=== PATIENT | male | born 1980 | race Caucasian/White ===

== ENCOUNTER → 2020-10-25 11:11 | Outpatient (CLI) | payer OTHER, SELFPAY ==
[2020-10-25 12:04] LABS: Basophils # 0.1 K/mm3 (0-0.2); Basophils % 1.2 % (0.1-2.0); Eosinophils # 0.3 K/mm3 (0.0-0.4); Eosinophils % 7.8 % (0.1-12.0); Hematocrit 40.4 % (42.0-52.0); Lymphocytes # 1.4 K/mm3 (0.7-4.5); Lymphocytes % 31.2 % (10-50); Mean Corpuscular HGB Conc 34.6 g/dL (31.8-35.4); Mean Corpuscular Hemoglobin 28.9 pg (27.0-31.2); Mean Corpuscular Volume 83.3 fl (80-94); Mean Platelet Volume 7.5 fl (7.4-10.4); Monocytes # 0.3 K/mm3 (0.1-1.0); Monocytes % 5.8 % (1.7-9.3); Neutrophils # 2.3 K/mm3 (1.8-7.8); Platelet Count 298 K/mm3 (142-424); Red Blood Count 4.85 M/mm3 (4.60-6.20); Red Cell Distribution Width 13.2 % (11.5-17.5); White Blood Count 4.3 K/mm3 (4.8-10.8)
[2020-10-25 12:33] LABS: Anion Gap 14.5 mEq/L (5-15); Blood Urea Nitrogen 13 mg/dl (9-20); Calcium 8.9 mg/dl (8.4-10.2); Carbon Dioxide 26 mmol/L (22.0-30.0); Chloride 103 mmol/L (98-107); Estimated Glomerular Filt Rate 124 ml/min (>60); GFR (African American) 150 ML/MIN (>60); Glucose 98 mg/dl (74-100); Potassium 4.5 mmoL/L (3.5-5.1); Sodium 139 mmol/L (136-145)
== END ==
PROVIDERS: Visit Provider Surgery
DX: Z01.812 Encounter for preprocedural laboratory examination (principal); Z11.52 Encounter for screening for COVID-19; K40.90 Unilateral inguinal hernia, without obstruction or gangrene, not specified as recurrent
CPT/HCPCS: 36415; 80048; 85025; U0003

== ENCOUNTER 2020-10-28 06:58 | Day surgery (SDC) | payer OTHER, SELFPAY ==
[2020-10-20 14:13] VITALS: BMI 23.5
[2020-10-28] VITALS (15 sets, daily range): BP systolic 113–151; BP diastolic 71–89; PULSE 67–106; RESP 14–18; TEMP 36.2–42.7; O2SAT 95–100
--- NOTE | 2020-10-28 09:29 | P.PN_ITS ---
[facility] Anesthesia Checklist - Patient Identification Patient Identification: Arm Band - Structural Data Admitted From: Home Planned Operative Procedure/s: Lap. bilat inguinal hernia repair Consent for Planned Operative Procedure(s) Verified: Yes Verified Documents: Surgical Consent, History and Physical - NPO Status Verified Time NPO: 00:00 - Additional verifications Anesthesia Reactions: No Hx Blood Transfusions: No Blood Transfusion Reaction: No - Airway Assessment C-Spine Mobility Assessed: Yes TMJ Mobility Assessed: Yes Dentition: Good Dentition - Neurological Assessment Level of Consciousness: Awake, Alert - Anesthesia Plan Anesthesia Risk discussed: Yes Anesthesia Plan: Verified ASA Class: I Anesthesia Type: General [facility] History Medical History: Denies:: Cancer, Diabetes Mellitus Type 1, Diabetes Mellitus Type 2, Internal Pacemaker, MRSA, Seizures *Have you ever received a pneumonia vaccine?: No *Have you received a flu vaccine this season?: Yes Other Medical History: Denies: Blood Transfusion Reaction Anesthesia experience/problems:: None Other Surgeries: Yes: Colonoscopy. No: Pacemaker Amputation: No Fractures: No - *Social History Last grade of school completed: Some college Smoking Status: Never smoker Alcohol Intake: never Substance Use Type: marijuana *Occupational Status:: employed Housing: house *Travel in the last 8 weeks: None Family Hx:: No significant family history
--- NOTE | 2020-10-28 10:22 | HMH.OPNOTE ---
Date of procedure: 10/28/20 Pre-op Diagnosis:: Bilateral inguinal hernias Post-op Diagnosis:: Same Procedure performed:: Laparoscopic repair bilateral inguinal hernias (TEPP) with placement of large sized Bard 3D max mesh bilaterally Surgeon:: Miguel Vazquez MD WHALE TRAINER:: Seamus Sue Anesthesia: GETA Estimated blood loss (mL): 15 Clinical Note:: Patient is a 39-year-old male who lives in [place] referred by Dr. Aneesh Dey for bilateral inguinal hernias. Patient states that he has been trying to maintain healthier lifestyle with diet and some exercise and has had about a 30 pound weight loss as result over this year. He had noticed some discomfort in the right lower quadrant area with abnormal sensation. He then noticed some asymmetry with bulging in the right groin area. Less bulging in the left groin. He was diagnosed with bilateral inguinal hernias. He does have some occasional burning discomfort and irritation in the right side more so than the left. Of note, the patient does have a history of prostatitis and complicated kidney stones. He works from home for [employer]. Operative findings:: He had a large right direct hernia as well as a moderate right indirect hernia. On the left he had a moderately large indirect hernia Operative note:: Patient was taken to the operating room. He was given preoperative intravenous antibiotics. In the operating room he was placed in a supine position. General anesthesia was induced. Chapman catheter was placed. Abdomen was prepped and draped in the standard surgical fashion. Subumbilical skin incision was made and dissection was carried down to the anterior rectus fascia which was incised to the right of the linea alba. Rectus muscles were retracted laterally and preperitoneal space was entered. Dissecting balloon trocar was inserted into the preperitoneal space and insufflated. This was observed under laparoscopic visualization. Balloon was then replaced with the structural balloon trocar which was inflated and CO2 pneumo preperitoneum was achieved. When placing a couple of 5 mm trochars inferior the balloon integrity was compromised. Structural balloon trocar was then removed and replaced with another structural balloon trocar. CO2 pneumo preperitoneum was insufflated. Dissection was first turned to the right side. Landmarks were identified identifying John's ligament. Inferior epigastric vessel, cord structures, and iliac vessels were identified. There was a moderately large direct hernia noted. Contents were easily reduced. Dissection was carried out around the cord. There was somewhat of a patent internal ring with a hernia sac. Hernia sac was dissected free from the cord and reduced. Preperitoneal space was dissected out laterally to allow for mesh placement. At this time attention was turned to dissection on the left side. In a similar fashion all landmarks were identified and dissection was carried out identifying John's ligament, inferior epigastric vessels, cord structures, and iliac vessels. There was no evidence of any appreciable direct hernia. However he had a widely patent internal ring with hernia sac consistent with indirect hernia. Hernia sac was able to be reduced. Dissection was carried out laterally to allow for mesh placement. Once full dissection was carried out a large sized Bard 3D max mesh dedicated for the left side was inserted into the preperitoneal space and oriented intracorporeally to cover the iliopectineal orifice. Repair appeared adequate. Next attention was turned to mesh placement on the right. A large sized Bard 3D max mesh dedicated for the right side was inserted into the preperitoneal space and oriented intracorporeally to cover the iliopectineal orifice. Repair appeared adequate. There was good hemostasis. CO2 pneumo preperitoneum was evacuated as the mesh was observed in good position. Trochars were removed. Posterior fashion per
--- NOTE | 2020-10-28 11:28 | SUR.PHASEII ---
ZOFRAN 4MG AND DECADRON 4MG IV GIVEN PER Sandra PELAYO RN.
--- NOTE | 2020-10-28 12:22 | SUR.PHASEII ---
PHENERGAN 6.25MG IN 25CCNS GIVEN IVPB OVER 15 MIN
[2020-10-28 13:55] LABS: Microscopic,Cath URINE MICROSCOPIC (MICROSCOPIC)
--- NOTE | 2020-10-28 13:56 | SUR.PHASEII ---
TC TO ESTHELA IN OFFICE TO INFORM TO CANCEL SCRIPT INTO Dajie AND CALL INTO CLINIC PHARMACY. VERBALIZED WOULD TRY AND WOULD NOTIFY MOTHER BOO.
--- NOTE | 2020-10-28 14:00 | HMH.ANESI ---
[facility] Anesthesia Record Part I Intake, IV Amount: 1,700 Estimated blood loss (mL): 2 Urine output (mL): 0 Blood Pressure: 151/84 SaO2: 95 Pulse Rate: 106 Respiratory Rate: 14 Temperature: 98.4 F Patient is:: Awake, Drowsy Stable to PACU at:: 10:40
[2020-10-28 14:02] LABS: Appearance,Urine/Cath CLEAR (Clear); Bilirubin,Cath Negative (Negative); Blood, Urine/Cath Negative (Negative); Color,Urine/Cath YELLOW (Yellow); Glucose,Urine/Cath (UA) Negative (Negative); Ketones,Urine/Cath Negative (Negative); Leukocyte Esterase,Cath Negative (Negative); Nitrate,Cath Negative (Negative); Protein,Urine/Cath Negative (Negative); Urobilinogen,Cath 0.2 EU/dl (0.2)
[2020-10-28 14:07] LABS: RBC,Urine/Cath Occasional # /hpf (0-3); Squamous Epithelial Ur./Cath Occasional #/hpf (0-5)
[2020-10-29 11:03] VITALS: BP 117/71; PULSE 87; TEMP 37
--- NOTE | 2020-10-29 11:03 | P.PN_ITS ---
[facility] Anesthesia Record Part II Discharge Time: 11:00 Destination: Surgical Day Care (OP Surgery) PACU nurse assessment reviewed?: Yes Patient Condition:: Good Anesthesia Complications:: None Swallowing reflex intact?: Yes Cyanosis?: No Blood Pressure: 117/71 Pulse Rate: 87 Temperature: 98.6 F Mental Status: Alert & Oriented Pain level:: 0 Nausea and/or vomitting:: None Intake, IV Amount: 0
== END 2020-10-28 13:06 | disposition home or self-care (01) ==
PROVIDERS: PCP Internal Medicine; Visit Provider Surgery
PROC: 0YQ64ZZ Repair Left Inguinal Region, Percutaneous Endoscopic Approach (ICD-10-PCS; CPT 49650; principal; 2020-10-28 08:30)
DX: K40.20 Bilateral inguinal hernia, without obstruction or gangrene, not specified as recurrent (principal); Z79.899 Other long term (current) drug therapy
CPT/HCPCS: 49650; 81001; 96374; C1781; J0131; J0330; J2405

== ENCOUNTER → 2021-02-23 18:29 | Outpatient (CLI) | payer OTHER, SELFPAY ==
[2021-02-23 19:59] LABS: Alanine Aminotransferase 14 U/L (12-78); Albumin Level 4.6 g/dl (3.5-5.0); Alkaline Phosphatase 53 U/L (38-126); Anion Gap 13.4 mEq/L (5-15); Aspartate Amino Transferase 22 U/L (17-59); Bilirubin,Total 0.6 mg/dl (0.2-1.3); Blood Urea Nitrogen 7 mg/dl (9-20); Carbon Dioxide 30 mmol/L (22.0-30.0); Chloride 101 mmol/L (98-107); Chol/HDL Ratio 5.7 (1-3.5); Cholesterol 211 mg/dl (140-200); Estimated Glomerular Filt Rate 148 ml/min (>60); GFR (African American) 179 ML/MIN (>60); Globulin 2.3 g/dL (1.3-3.2); Glucose 76 mg/dl (74-100); HDL Cholesterol 37 mg/dl (40-60); Potassium 4.4 mmoL/L (3.5-5.1); Sodium 140 mmol/L (136-145); Total Protein,Serum 6.9 g/dl (6.3-8.2); Triglycerides 295 mg/dl (30-150); VLDL Cholesterol 59 mg/dL (0-40)
[2021-02-23 20:10] LABS: Direct LDL Cholesterol 105.77 mg/dL (100-129)
== END ==
PROVIDERS: Visit Provider Internal Medicine
DX: E78.5 Hyperlipidemia, unspecified (principal); K58.1 Irritable bowel syndrome with constipation; R19.4 Change in bowel habit; Z87.442 Personal history of urinary calculi
CPT/HCPCS: 80053; 80061

== ENCOUNTER 2023-03-03 08:55 | Day surgery (SDC) | payer BC, SELFPAY ==
[2023-02-28 13:09] VITALS: BMI 24.3
[2023-03-03] VITALS (7 sets, daily range): BP systolic 85–119; BP diastolic 54–76; PULSE 70–75; RESP 14–18; TEMP 36.4–36.6; O2SAT 94–99
--- NOTE | 2023-03-03 09:50 | EXP.ANES.CKL ---
[facility] Disclaimer: The information contained in this section may have been updated after the patient was seen, as this information can be updated by other users. Medical History Allergies Migraine Surgical History History of ear surgery Hx of hernia repair Family History Other No significant family history Social History Smoking Status: Never smoker second hand exposure: No alcohol intake: never substance use type: marijuana current occupational status: employed Travel in the last 8 weeks: None housing: house current occupation: IT security current occupational exposures/hazards: No caffeine: Yes [facility] Anesthesia Checklist Patient Identification Patient Identification: Arm Band Structural Data Admitted From: Home Planned Operative Procedure/s: Colonoscopy Consent for Planned Operative Procedure(s) Verified: Yes Verified Documents: Surgical Consent and History and Physical NPO Status Verified Time NPO: 00:00 Additional verifications Anesthesia Reactions: No Hx Blood Transfusions: No Blood Transfusion Reaction: No Airway Assessment Mallampati Score:: Class II C-Spine Mobility Assessed: Yes TMJ Mobility Assessed: Yes Dentition: Good Dentition Neurological Assessment Level of Consciousness: Awake and Alert Anesthesia Plan Anesthesia Risk discussed: Yes Anesthesia Plan: Verified ASA Class: II Anesthesia Type: MAC
--- NOTE | 2023-03-03 10:09 | HMH.SCOPE ---
Procedure: Date: 03/03/23 Patient Date of :: 1980 Procedure Performed:: Screening colonoscopy Indications:: Age for colorectal cancer screening Performing Provider:: Wm Balderas MD Referring Provider:: Aneesh Dey MD Sedation:: Propofol Procedure:: After placing the patient in the left lateral decubitus position, the colonoscopy was gently inserted into the rectum and under direct visualization advanced to the cecum which was identified by transillumination in the right lower quadrant, identification of the ileocecal valve, appendiceal orifice, and cecal strap. Color, texture, mucosa, and anatomy of the colon were carefully examined with the scope. Findings:: Anal canal: normal Rectum: normal Sigmoid colon: normal without polyps or inflammatory changes Descending colon: normal without polyps or inflammatory changes Splenic flexure: normal Transverse colon: normal without polyps or inflammatory changes Hepatic flexure: normal Ascending colon: normal without polyps or inflammatory changes Cecum: normal Terminal ileum: not visualized Impression: Normal colonoscopy Recommendations:: Follow up examination in about TEN years or so, sooner if clinically indicated. Complications:: None Estimated blood obtained (mL): 0 Colonoscopy Component Colonoscopy Component Was a colonoscopy performed during today's procedure?: Yes Recommended follow up colonoscopy of at least 10 years?: Yes
== END 2023-03-03 10:50 | disposition home or self-care (01) ==
PROVIDERS: PCP Internal Medicine; Visit Provider Internal Medicine Gastroenterology
PROC: (CPT 45378; principal; 2023-03-03 10:00)
DX: Z12.11 Encounter for screening for malignant neoplasm of colon (principal)
CPT/HCPCS: 45378

== ENCOUNTER 2023-08-03 13:41 | Outpatient (CLI) | payer BC, SELFPAY ==
--- NOTE | 2023-08-03 13:46 | XR_ITS ---
FINAL REPORT CLINICAL HISTORY: Rt Shoulder Pain COMPARISON: None FINDINGS: RIGHT SHOULDER: 3 views of the right shoulder were obtained. There is no acute fracture or dislocation. There is mild elevation of the distal clavicle worrisome for mild AC separation. There is no soft tissue abnormality. IMPRESSION: Findings worrisome for mild AC separation. Reviewed, Interpreted and Dictated by Miguel Mendoza III, MD Transcribed by Alessandra Romero Authenticated and [facility]
== END 2023-08-03 23:59 ==
LOC: RAD 13:41
PROVIDERS: PCP Internal Medicine; Visit Provider Physician Assistant Surgical
DX: M25.511 Pain in right shoulder (principal)
CPT/HCPCS: 73030

== ENCOUNTER 2024-07-23 11:47 | Outpatient (CLI) | payer BC, SELFPAY ==
[2024-07-23 12:36] LABS: Alanine Aminotransferase 20 U/L (12-78); Albumin Level 4.8 g/dl (3.5-5.0); Albumin/Globulin Ratio 2.3 (1.1-1.8); Alkaline Phosphatase 42 U/L (38-126); Anion Gap 4.5 mEq/L (5-15); Aspartate Amino Transferase 22 U/L (17-59); Bilirubin,Total 0.6 mg/dl (0.2-1.3); Blood Urea Nitrogen 8 mg/dl (9-20); Calcium 9.9 mg/dl (8.4-10.2); Carbon Dioxide 34 mmol/L (22.0-30.0); Chloride 106 mmol/L (98-107); Estimated Glomerular Filt Rate 122 ml/min (>60); GFR (African American) 148 ML/MIN (>60); Globulin 2.1 g/dL (1.3-3.2); Glucose 105 mg/dl (74-100); Potassium 4.5 mmoL/L (3.5-5.1); Sodium 140 mmol/L (136-145); Total Protein,Serum 6.9 g/dl (6.3-8.2)
[2024-07-23 12:50] LABS: Free T4 (Free Thyroxine) 1.06 ng/dl (0.78-2.19)
[2024-07-23 13:04] LABS: Thyroid Stimulating Hormone 4.88 uIU/mL (0.465-4.68)
[2024-07-24 12:11] LABS: Lithium (Eskalith(R)) 0.6 mmol/L (0.5-1.2)
== END 2024-07-23 23:59 | disposition home or self-care (01) ==
LOC: LAB 11:47
PROVIDERS: PCP Internal Medicine; Visit Provider Nurse Practitioner Acute Care
DX: F39 Unspecified mood [affective] disorder (principal); F41.9 Anxiety disorder, unspecified; E03.9 Hypothyroidism, unspecified; G44.009 Cluster headache syndrome, unspecified, not intractable; Z79.899 Other long term (current) drug therapy
CPT/HCPCS: 36415; 80053; 80178; 84439; 84443

== ENCOUNTER 2024-10-18 10:20 | Outpatient (CLI) | payer BC, SELFPAY ==
--- NOTE | 2024-10-18 | CA_ITS ---
APPROVED REPORT Exam: Exercise Treadmill Technologist: [place] Ht: 6 ft 1 in Wt: 204 lbs BSA: 2.17 m2 HR: 62 bpm BP: 137/79 mmHg Rhythm: NSR Stress Test Details Test: Exercise stress testing was performed using a Veto protocol. HR Resting HR: 62 bpm Max Heart Rate (APMHR): 175 bpm Max HR Achieved: 157 bpm Target HR (85% APMHR): 149 bpm % of APMHR: 90 Recovery HR: 98 bpm HR response to stress: Normal HR response to stress BP Resting BP: 137.0/79.0 mmHg Max BP: 160.0/78.0 mmHg Recovery BP: 142.0/80.0 mmHg BP response to stress: Normal blood pressure response to stress. ECG Resting ECG: NSR Stress EC mm horizontal ST depression Arrhythmia: PVCs Clinical Exercise duration: 8.15 min Exercise capacity: 10.3 METs Stress ECG Conclusion Patient had leg fatigue Ectopy: PVCs ST changes: [address] depression CONCLUSION Average exercise capacity. Equivocal ECG changes at peak stress Myoview images reported separately Electronically signed by : Niharika Khnana MD 10/19/2024 15:43:37
--- NOTE | 2024-10-18 10:30 | CA_ITS ---
APPROVED REPORT EXAM: Comprehensive 2D, Doppler, and color-flow Echocardiogram Dough Braker: SMITHA Gabriel, RVS Ht: 6 ft 1 in Wt: 204lbs BSA: 2.17 BP: 114/76 mmHg Indications: CP 2D Dimensions Aortic Root 3.16 cm LA Volume 75.60 mL Left Atrium 3.14 cm LA Volume Index [id number] mL/m2 (M/F) 16-34 RVID Base (AP4) 3.79 cm (M/F) 2.5-4.1 EF AP4 61.20 % LVOT 2.11 cm (M/F) 1.5-2.5 GL Strain -23.1 % M-Mode Dimensions RVDd 2.92 cm (0.9-2.6) LVDd 4.63 cm (3.5-5.7) Ao Diam 3.28 cm (2.0-3.7) LVDs 2.76 cm (3.5-5.7) IVSd 1.25 cm (0.6-1.1) PWd 1.06 cm (0.6-1.1) EF (Teich) 74.70% EPSs 0.61 cm FS 43.70% EDV (Teich) 112.80 mL TAPSE 2.83 (<1.7) ESV (Teich) 28.50 mL LV Diastology E Decel Time 156 (160-240 msec) E/A Ratio 1.71 MED E' 10.2 (>= 7 cm/sec) MED A' 12.70 cm/s E'/MED E' Ratio 7.95 (<= 14) LAT E' 19.5 (>= 10 cm/sec) LAT A' 8.80 cm/s E/LAT E' Ratio 4.16 (<= 14) Aortic Valve LVOT Max 91.0 (70-110 cm/s) MEAGAN Index 1.22 cm2/m2 LVOT VTI 20.35 cm AoV Peak Vijay. 129.0 (50-130 cm/s) AO Mean GR. 3.40 (<5 mmHg) AO VTI 26.9 (18-25 cm) MEAGAN (VTI) 2.64 (2.5-4.5 cm2) Mitral Valve MV E Max Vijay. 81.0 (40-130 cm/s) MV A Velocity 47.0 (40-130 cm/s) E/A Ratio 1.71 MV Decel. Time 156 (160-240 ms) Tricuspid Valve TR P. Velocity 217.00 cm/s RAP Estimate 10.00 mmHg RVSP 28.90 mmHg Left Ventricle The left ventricle is normal size. The left ventricular systolic function is normal. The left ventricular ejection fraction is within the normal range. There is normal left ventricular wall thickness. There is normal LV segmental wall motion. The left ventricular diastolic function is normal. LVEF is 55%. Right Ventricle The right ventricle is normal size The right ventricular systolic function is normal. Atria The left atrium size is normal. The right atrium size is normal. There is no Doppler evidence of interatrial shunt. The aortic valve opens well. Aortic Valve The aortic valve opens well. There is no aortic valvular stenosis. No aortic regurgitation is present. Mitral Valve The mitral valve is normal in structure. No evidence of mitral valve stenosis. Mild mitral regurgitation. Tricuspid Valve Tricuspid valve is grossly normal in structure and function. Trace tricuspid regurgitation. There is insufficient TR jet to estimate RVSP. Pulmonic Valve The pulmonary valve is normal in structure. Trace pulmonic regurgitation. Great Vessels The aortic root is normal in size. IVC is normal in size and collapses >50% with inspiration. Pericardium There is no pericardial effusion. Other Information Study Quality: Fair Conclusion Normal biventricular systolic function. Mild MR. Electronically signed by : Niharika Khanna MD 10/22/2024 12:59:28
--- OUTSIDE RECORDS SUMMARY | 2024-10-18 10:31 | XMS_ITS | Data Portability ---
Author Organization [facility] ADALID Mccollum [place] [facility] Address [address] [facility] [address] [place] [address] Care Team Providers Care Manager Finance Name Role Phone CINDY HOSKINS Primary Care Provider ZELALEM ROWLAND Neurologist [phone] Assessment Encounter Date Assessment Date Assessment LastModified by Organization Details LastModified Time 06/20/2023 06/20/2023 Chronic cluster headache. In general he feels lithium has been helpful though headaches are not gone. Will try increasing to QID for now. Will put in for level and labs in another couple of weeks. f/u three mos [email or web address] Not available 06/26/2023 14:18:04 09/19/2023 09/19/2023 1. Chronic cluster headache 2. Additional migraines. While headaches are not gone, he is generally doing much better with lithium. Will continue. Discussed staying hydrated, kane when working outside this summer. Will repeat level and check creatinine, TSH. f/u late summer but he knows to call anytime if needed. [email or web address] Not available 09/19/2023 13:12:35 01/18/2024 01/18/2024 Chronic headache disorder. He has chronic cluster headaches and additional migraines. He had increased headaches thru November after having COVID Generally he has been better the past week or two. He feels he is doing much better overall, since starting lithium for prevention. Will continue same meds. Will check labs today f/u few mos [email or web address] Not available 01/18/2024 19:11:36 05/17/2024 05/17/2024 Chronic cluster headache. There have been headaches the past few nites but until the recent past he was doing well. For now, will make no change, but if these linger or if frequency seems consistently worse he knows to call. f/u few mos Not available 05/17/2024 12:44:46 09/14/2024 09/14/2024 Chronic cluster headache. Discussed options. He has been doing better the past couple of weeks - perhaps because of propranolol. I am not sure how much lithium is really helping. Will try stopping this and continuing propranolol. Dose could be increased to 60 mg LA or more, if needed f/u in just six weeks [email or web address] Not available 09/16/2024 14:23:26 Plan of Treatment Reminders Order Date Submit Date Provider Last Modified By Organization Details Last Modified Time Details Appointments NEUROLOG Y RECHECK 2024 10:30A M ZELALEM ROWLAND MD Not available Not available Not available Lab lithium, quant, serum or plasma 2024 025 [facility], [address] [place] [address], [id number], 05/18/2024 07:36:14 TSH, serum, reflex free T4 2024 025 [facility], [address] [place] [address], [id number], 05/17/2024 11:54:22 BMP, serum or plasma 2024 025 [facility], [address] [place] [address], [id number], 05/17/2024 11:58:17 lithium, quant, serum or plasma 2023 024 [facility], [address] [place] [address], [id number], 01/19/2024 06:56:04 TSH, serum, reflex free T4 2023 024 [facility], [address] [place] [address], [address], 01/18/2024 18:45:13 BMP, serum or plasma 2023 024 [facility], [address] [place] [address], [id number], 01/18/2024 18:30:59 TSH, serum, reflex free T4 2023 024 [facility], [address] [place] [address], [address], 09/23/2023 18:42:11 BMP, serum or plasma 2023 024 [facility], [address] [place] [address], [id number], 09/23/2023 19:00:15 T3, free, serum or plasma 2023 024 [facility], [address] [place] [address], [address], 09/23/2023 18:42:10 lithium, quant, serum or plasma 2023 024 [facility], [address] [place] [address], [id number], 09/24/2023 06:59:21 CMP, serum or plasma 2023 024 [email or web address] [facility], [address] [place] [address], [address], 06/27/2023 08:16:16 TSH, serum, reflex free T4 2023 024 [facility], [address] [place] [address], [id number], 06/30/2023 20:15:31 lithium, quant, serum or plasma 2023 024 [facility], [address] [place] [address], [address], 07/01/2023 06:18:47 Referral None recorded . Procedures None recorded . Surgeries None recorded . Imaging None recorded . Medication Orders sumatrip melendez 6 mg/0.5 mL subcutan eous pen injector 2024 025 AUNEL [facility] [id number], [address] [place], [address], 05/17/2024 10:38:25 rizatrip melendez 10 mg disinteg rating tablet [address] [facility] [id number], [address] [place], [address], 01/19/2024 10:08:57 lithium carbonat e 300 mg capsule [address] [id number], [address] [place], [address], 09/19/2023 12:13:58 Patient TargetsNo targets recorded. Patient InstructionsNo instructions recorded. Reason for Referral None Reported. Results Created Date Observation Date Name Description Value Unit Range Abnormal Flag Note LastModifiedBy Organization Detail LastModifiedTime 05/25/1905/25/2023 urina lysis panel , auto Unknown Analyte Clean Catch Not Available [facility] [address], [place], [address], 05/25/2023 11:40:20 05/25/19 24 05/25/2023 urina lysis panel , auto Unknown Analyte Yellow Not Available [facility] [place] [address], [place], [address], 05/25/2023 11:40:20 05/25/1905/25/2023 urina lysis panel , auto Unknown Analyte Clear Not Available [facility] With [address], [place], [address], 05/25/2023 11:40:20 05/25/19 24 05/25/2023 urina lysis panel , auto Unknown Analyte 1.010 Not Available [facility] [address] [facility], [place], [address], 05/25/2023 11:40:20 05/25/19 24 05/25/2023 urina lysis panel , auto Unknown Analyte 1.003- 1.035 Not Available [facility] [place] [address], [place], [address], 05/25/2023 11:40:20 05/25/19 24 05/25/2023 urina lysis panel , auto Unknown Analyte 8.0 Not Available [facility] [place] [address] [facility], [place], [address], 05/25/2023 11:40:20 05/25/19 24 05/25/2023 urina lysis panel , auto Unknown Analyte 5.0-8. 0 Not Available [facility] [place] [address] [facility], [place], [address], 05/25/2023 11:40:20 05/25/19 24 05/25/2023 urina lysis panel , auto Unknown Analyte Negati ve Not Available [facility] [place] [address] [facility], [place], [address], 05/25/2023 11:40:20 05/25/19 24 05/25/2023 urina lysis panel , auto Unknown Analyte Negati ve Not Available [facility] [place] [address] [facility], [place], [address], 05/25/2023 11:40:20 05/25/19 24 05/25/2023 urina lysis panel , auto Unknown Analyte Negati ve Not Available [facility] With [address], [place], [address], 05/25/2023 11:40:20 05/25/19 24 05/25/2023 urina lysis panel , auto Unknown Analyte Negati ve Not Available [facility] [address], [place], [address], 05/25/2023 11:40:20 05/25/19 24 05/25/2023 urina lysis panel , auto Unknown Analyte Negati ve Not Available [facility] [address], [place], [address], 05/25/2023 11:40:20 05/25/19 24 05/25/2023 urina lysis panel , auto Unknown Analyte Negati ve Not Available [facility] [address], [place], [address], 05/25/2023 11:40:20 05/25/19 24 05/25/2023 urina lysis panel , auto Unknown Analyte Normal Not Available [facility] [place] [address], [place], [address], 05/25/2023 11:40:20 05/25/19 24 05/25/2023 urina lysis panel , auto Unknown Analyte Normal Not Available [facility] [address], [place], [address], 05/25/2023 11:40:20 05/25/19 24 05/25/2023 urina lysis panel , auto Unknown Analyte Negati ve Not Available [facility] [address], [place], [address], 05/25/2023 11:40:20 05/25/1925 0505/25/2023 urina lysis panel , auto Unknown Analyte Negati ve Not Available [facility] [address], [place], [address], 05/25/2023 11:40:20 05/25/19 24 05/25/2023 urina lysis panel , auto Unknown Analyte Normal Not Available [facility] [place] [address], [place], [address], 05/25/2023 11:40:20 05/25/19 24 05/25/2023 urina lysis panel , auto Unknown Analyte Normal 1 mg/dl Not Available [facility] [place] [address], [place], [address], 05/25/2023 11:40:20 05/25/19 24 05/25/2023 urina lysis panel , auto Unknown Analyte Negati ve Not Available [facility] With [address], [place], [address], 05/25/2023 11:40:20 05/25/19 24 05/25/2023 urina lysis panel , auto Unknown Analyte Negati ve Not Available [facility] [place] [address], [place], [address], 05/25/2023 11:40:20 05/25/19 24 05/25/2023 urina lysis panel , auto Unknown Analyte Negati ve Not Available [facility] [place] [address], [place], [address], 05/25/2023 11:40:20 05/25/19 24 05/25/2023 urina lysis panel , auto Unknown Analyte Negati ve Not Available [facility] [place] [address], [place], [address], 05/25/2023 11:40:20 06/08/19 24 06/08/2023 TSH WITH REFLE X FT4 TSH with reflex FT4 5.590 u[IU] /mL 0.270- 4.200 high Not Available [facility] [address] [place] [address], [address], 06/08/2023 18:50:24 06/08/19 24 06/08/2023 AST AST 24 U/L 0-40 normal Not Available [facility] [address] [place] [address], [address], 06/08/2023 19:12:28 06/08/19 24 06/08/2023 CREAT ININE creatinine 0.77 mg/dL 0.70-1 .28 normal Not Available [facility] [address] [place] [address], [address], 06/08/2023 19:12:29 06/08/19 24 06/08/2023 T4,FR EE T4,free 1.28 NG/dL 0.93-1 .70 normal Not Available [facility] [address] [place] [address], [address], 06/08/2023 19:25:24 06/08/19 24 06/09/2023 LITHI UM lithium 0.5 mmol/ L 0.6-1. 2 low Not Available [facility] [address] [place] [address], [address], 06/09/2023 05:48:40 06/30/19 24 06/30/2023 TSH WITH REFLE X FT4 TSH with reflex FT4 6.350 u[IU] /mL 0.270- 4.200 high Not Available [facility] [address] [place] [address], [address], 06/30/2023 20:15:31 06/30/19 24 06/30/2023 COMP. METAB OLIC PANEL glucose 97 mg/dL 74-100 normal Not Available [facility] [address] [place] [address], [address], 06/30/2023 20:40:08 06/30/19 24 06/30/2023 COMP. METAB OLIC PANEL blood urea nitrogen 11 mg/dL 6-20 normal Not Available [facility] [address] [place] [address], [address], 06/30/2023 20:40:08 06/30/19 24 06/30/2023 COMP. METAB OLIC PANEL creatinine 0.85 mg/dL 0.70-1 .28 normal Not Available [facility] [address] [place] [address], [address], 06/30/2023 20:40:08 06/30/19 24 06/30/2023 COMP. METAB OLIC PANEL BUN/creatini ne ratio 13 (calc ) 10-20 normal Not Available [facility] [address] [place] [address], [address], 06/30/2023 20:40:08 06/30/19 24 06/30/2023 COMP. METAB OLIC PANEL sodium 141 mmol/ L 136-14 5 normal Not Available [facility] [address] [place] [address], [address], 06/30/2023 20:40:08 06/30/19 24 06/30/2023 COMP. METAB OLIC PANEL potassium 3.8 mmol/ L 3.4-5. 0 normal Not Available [facility] [address] [place] [address], [address], 06/30/2023 20:40:08 06/30/19 24 06/30/2023 COMP. METAB OLIC PANEL chloride 103 mmol/ L 98-107 normal Not Available [facility] [address] [place] [address], [address], 06/30/2023 20:40:08 06/30/19 24 06/30/2023 COMP. METAB OLIC PANEL carbon dioxide 25 mmol/ L 22-31 normal Not Available [facility] [address] [place] [address], [address], 06/30/2023 20:40:08 06/30/19 24 06/30/2023 COMP. METAB OLIC PANEL anion gap 13 (calc ) 7-25 normal Not Available [facility] [address] [place] [address], [address], 06/30/2023 20:40:08 06/30/19 24 06/30/2023 COMP. METAB OLIC PANEL calcium 9.4 mg/dL 8.6-10 .2 normal Not Available [facility] [address] [place] [address], [address], 06/30/2023 20:40:08 06/30/19 24 06/30/2023 COMP. METAB OLIC PANEL total protein 6.8 g/dL 6.4-8. 3 normal Not Available [facility] [address] [place] [address], [address], 06/30/2023 20:40:08 06/30/19 24 06/30/2023 COMP. METAB OLIC PANEL albumin 4.5 g/dL 3.5-5. 2 normal Not Available [facility] [address] [place] [address], [address], 06/30/2023 20:40:08 06/30/19 24 06/30/2023 COMP. METAB OLIC PANEL globulin 2.3 1.5-4. 5 normal Not Available [facility] [address] [place] [address], [address], 06/30/2023 20:40:08 06/30/19 24 06/30/2023 COMP. METAB OLIC PANEL albumin/glob ulin ratio 2.0 (calc ) 1.1-2. 5 normal Not Available [facility] [address] [place] [address], [address], 06/30/2023 20:40:08 06/30/19 24 06/30/2023 COMP. METAB OLIC PANEL bilirubin, total 0.7 mg/dL 0.1-1. 2 normal Not Available [facility] [address] [place] [address], [address], 06/30/2023 20:40:08 06/30/19 24 06/30/2023 COMP. METAB OLIC PANEL alkaline phosphatase 42 U/L 40-129 normal Not Available [facility] [address] [place], [address], 06/30/2023 20:40:08 06/30/19 24 06/30/2023 COMP. METAB OLIC PANEL AST 17 U/L 0-40 normal Not Available [facility] [address] [place] [address], [address], 06/30/2023 20:40:08 06/30/19 24 06/30/2023 COMP. METAB OLIC PANEL ALT 26 U/L 0-41 normal Not Available [facility] [address] [place] [address], [address], 06/30/2023 20:40:08 06/30/19 24 06/30/2023 COMP. METAB OLIC PANEL GFR 109 >= 60 normal NOT E New calcu latio n for GFR (CKD- EPI 2020) is formu lated witho ut race adjus tment facto rs at the [facility] menda tion of the Oskar Grijalva y Nikolay atkaleb and [place] galdamez Socie ty of Nephr ology . This calcu latio n has not been valid ated in pregn ant women . For pedia tric patie nts refer to https ://hugo stanford.joseph maravilla/keith taylor s/VERNAO QI/gf r_cal culat orPed Not Available [facility] [address] [place] [address], [address], 06/30/2023 20:40:08 06/30/19 24 06/30/2023 T4,FR EE T4,free 1.23 NG/dL 0.93-1 .70 normal Not Available [facility] [address] [place] [address], [address], 06/30/2023 20:59:27 06/30/19 24 07/01/2023 LITHI UM lithium 0.7 mmol/ L 0.6-1. 2 normal Not Available [facility] [address] [place] [address], [address], 07/01/2023 06:18:47 09/23/19 24 09/23/2023 T3 FREE T3 free 3.27 pg/mL 2.00-4 .40 normal Not Available [facility] [address] [place] [address], [address], 09/23/2023 18:42:10 09/23/19 24 09/23/2023 TSH WITH REFLE X FT4 TSH with reflex FT4 9.670 u[IU] /mL 0.270- 4.200 high Not Available [facility] [address] [place] [address], [address], 09/23/2023 18:42:11 09/23/19 24 09/23/2023 BASIC METAB OLIC PANEL glucose 99 mg/dL 74-100 normal Not Available [facility] [address] [place] [address], [address], 09/23/2023 19:00:15 09/23/19 24 09/23/2023 BASIC METAB OLIC PANEL blood urea nitrogen 12 mg/dL 6-20 normal Not Available [facility] [address] [place] [address], [address], 09/23/2023 19:00:15 09/23/19 24 09/23/2023 BASIC METAB OLIC PANEL creatinine 0.78 mg/dL 0.70-1 .28 normal Not Available [facility] [address] [place] [address], [address], 09/23/2023 19:00:15 09/23/19 24 09/23/2023 BASIC METAB OLIC PANEL BUN/creatini ne ratio 15 (calc ) 10-20 normal Not Available [facility] [address] [place] [address], [address], 09/23/2023 19:00:15 09/23/19 24 09/23/2023 BASIC METAB OLIC PANEL sodium 140 mmol/ L 136-14 5 normal Not Available [facility] [address] [place] [address], [address], 09/23/2023 19:00:15 09/23/19 24 09/23/2023 BASIC METAB OLIC PANEL potassium 3.7 mmol/ L 3.4-5. 0 normal Not Available [facility] [address] [place] [address], [address], 09/23/2023 19:00:15 09/23/19 24 09/23/2023 BASIC METAB OLIC PANEL chloride 103 mmol/ L 98-107 normal Not Available [facility] [address] [place] [address], [address], 09/23/2023 19:00:15 09/23/19 24 09/23/2023 BASIC METAB OLIC PANEL carbon dioxide 24 mmol/ L 22-31 normal Not Available [facility] [address] [place] [address], [address], 09/23/2023 19:00:15 09/23/19 24 09/23/2023 BASIC METAB OLIC PANEL anion gap 13 (calc ) 7-25 normal Not Available [facility] [address] [place] [address], [address], 09/23/2023 19:00:15 09/23/19 24 09/23/2023 BASIC METAB OLIC PANEL calcium 9.1 mg/dL 8.6-10 .2 normal Not Available [facility] [address] [place] [address], [address], 09/23/2023 19:00:15 09/23/19 24 09/23/2023 BASIC METAB OLIC PANEL GFR 112 >= 60 normal NOT E New calcu latio n for GFR (CKD- EPI 2020) is formu lated witho ut race adjus tment facto rs at the recom menda tion of the Natnicole shea Kidtoño y Found atkaleb and Charlotte galdamez Kaykaye ty of Nephr ology . This calcu latio n has not been valid ated in pregn ant women . For pedia tric patie nts refer to https ://hugo w.canelo stanford.o rg/pr ofess ional s/KDO QI/gf r_cal culat orPed Not Available [facility] [address] [place] [address], [address], 09/23/2023 19:00:15 09/23/19 24 09/23/2023 T4,FR EE T4,free 1.16 NG/dL 0.93-1 .70 normal Not Available [facility] [address] [place] [address], [address], 09/23/2023 19:23:20 09/23/19 24 09/24/2023 LITHI UM lithium 0.4 mmol/ L 0.6-1. 2 low Not Available [facility] [address] [place] [address], [address], 09/24/2023 06:59:21 01/18/20 24 01/18/2024 BASIC METAB OLIC PANEL glucose 112 mg/dL 74-100 high Not Available [facility] [address] [place] [address], [address], 01/18/2024 18:30:59 01/18/20 24 01/18/2024 BASIC METAB OLIC PANEL blood urea nitrogen 9 mg/dL 6-20 normal Not Available [facility] [address] [place] [address], [address], 01/18/2024 18:30:59 01/18/20 24 01/18/2024 BASIC METAB OLIC PANEL creatinine 0.85 mg/dL 0.70-1 .28 normal Not Available [facility] [address] [place] [address], [address], 01/18/2024 18:30:59 01/18/20 24 01/18/2024 BASIC METAB OLIC PANEL BUN/creatini ne ratio 11 (calc ) 10-20 normal Not Available [facility] [address] [place] [address], [address], 01/18/2024 18:30:59 01/18/20 24 01/18/2024 BASIC METAB OLIC PANEL sodium 140 mmol/ L 136-14 5 normal Not Available [facility] [address] [place] [address], [address], 01/18/2024 18:30:59 01/18/20 24 01/18/2024 BASIC METAB OLIC PANEL potassium 4.1 mmol/ L 3.4-5. 0 normal Not Available [facility] [address] [place] [address], [address], 01/18/2024 18:30:59 01/18/20 24 01/18/2024 BASIC METAB OLIC PANEL chloride 103 mmol/ L 98-107 normal Not Available [facility] [address] [place] [address], [address], 01/18/2024 18:30:59 01/18/20 24 01/18/2024 BASIC METAB OLIC PANEL carbon dioxide 25 mmol/ L 22-31 normal Not Available [facility] [address] [place] [address], [address], 01/18/2024 18:30:59 01/18/20 24 01/18/2024 BASIC METAB OLIC PANEL anion gap 12 (calc ) 7-25 normal Not Available [facility] [address] [place] [address], [address], 01/18/2024 18:30:59 01/18/20 24 01/18/2024 BASIC METAB OLIC PANEL calcium 9.2 mg/dL 8.6-10 .2 normal Not Available [facility] [address] [place], [address], 01/18/2024 18:30:59 01/18/20 24 01/18/2024 BASIC METAB OLIC PANEL GFR 109 >= 60 normal NOT E New calcu latio n for GFR (CKD- EPI 2020) is formu lated witho ut race adjus tment facto rs at the recom menda tion of the Natio nal Kidne y Found ation and Amdinorah can Socie ty of Nephr ology . This calcu latio n has not been valid ated in pregn ant women . For pedia tric patie nts refer to https ://hugo stanford.joseph maravilla/keith taylor s/VERNAO QI/gf r_cal culat orPed Not Available [facility] [address] [place] [address], [address], 01/18/2024 18:30:59 01/18/20 24 01/18/2024 TSH WITH REFLE X FT4 TSH with reflex FT4 8.130 u[IU] /mL 0.270- 4.200 high Not Available [facility] [address] [place], [address], 01/18/2024 18:45:13 01/18/20 24 01/18/2024 T4,FR EE T4,free 1.18 NG/dL 0.93-1 .70 normal Not Available [facility] [address] [place], [address], 01/18/2024 19:06:17 01/18/20 24 01/19/2024 LITHI UM lithium 0.7 mmol/ L 0.6-1. 2 normal Not Available [facility] [address] [place] [address], [address], 01/19/2024 06:56:04 05/17/19 25 05/17/2024 TSH WITH REFLE X FT4 TSH with reflex FT4 5.910 u[IU] /mL 0.270- 4.200 high Not Available [facility] [address] [place] [address], [address], 05/17/2024 11:54:22 05/17/19 25 05/17/2024 BASIC METAB OLIC PANEL glucose 113 mg/dL 74-100 high Not Available [facility] [address] [place] [address], [address], 05/17/2024 11:58:17 05/17/19 25 05/17/2024 BASIC METAB OLIC PANEL blood urea nitrogen 17 mg/dL 6-20 normal Not Available [facility] [address] [place] [address], [address], 05/17/2024 11:58:17 05/17/19 25 05/17/2024 BASIC METAB OLIC PANEL creatinine 0.81 mg/dL 0.70-1 .28 normal Not Available [facility] [address] [place] [address], [address], 05/17/2024 11:58:17 05/17/19 25 05/17/2024 BASIC METAB OLIC PANEL BUN/creatini ne ratio 21 (calc ) 10-20 high Not Available [facility] [facility] [address] [place] [address], [phone], 05/17/2024 11:58:17 05/17/19 25 05/17/2024 BASIC METAB OLIC PANEL sodium 140 mmol/ L 136-14 5 normal Not Available [facility] [address] [place] [address], [address], 05/17/2024 11:58:17 05/17/19 25 05/17/2024 BASIC METAB OLIC PANEL potassium 4.5 mmol/ L 3.4-5. 0 normal Not Available [facility] [address] [place] [address], [address], 05/17/2024 11:58:17 05/17/19 25 05/17/2024 BASIC METAB OLIC PANEL chloride 103 mmol/ L 98-107 normal Not Available [facility] [address] [place], [address], 05/17/2024 11:58:17 05/17/19 25 05/17/2024 BASIC METAB OLIC PANEL carbon dioxide 24 mmol/ L 22-31 normal Not Available [facility] [address] [place], [address], 05/17/2024 11:58:17 05/17/19 25 05/17/2024 BASIC METAB OLIC PANEL anion gap 13 (calc ) 7-25 normal Not Available [facility] [address] [place], [address], 05/17/2024 11:58:17 05/17/19 25 05/17/2024 BASIC METAB OLIC PANEL calcium 9.8 mg/dL 8.6-10 .2 normal Not Available [facility] [address] [place], [address], 05/17/2024 11:58:17 05/17/19 25 05/17/2024 BASIC METAB OLIC PANEL GFR 110 >= 60 normal NOT E New calcu latio n for GFR (CKD- EPI 2020) is formu lated witho ut race adjus tment facto rs at the recom menda tion of the Oskar Grijalva y Nikolay atkaleb and Charlotte Mccrackene ty of Nephr ology . This calcu latio n has not been valid ated in pregn ant women . For pedia tric patie nts refer to https ://hugo w.canelo stanford.o rg/pr ofess ional s/KDO QI/gf r_cal culat orPed Not Available [facility] [address] [place], [address], 05/17/2024 11:58:17 05/17/19 25 05/17/2024 T4,FR EE T4,free 1.12 NG/dL 0.93-1 .70 normal Not Available [facility] [address] [place], [address], 05/17/2024 12:18:11 05/17/19 25 05/18/2024 LITHI UM lithium 0.5 mmol/ L 0.6-1. 2 low Not Available [facility] [address] [place], [address], 05/18/2024 07:36:14 05/23/19 24 05/23/2023 XR, abdom en, [address] [place] [address] Patien t Name: PHUONG padilla : [phone] Patimeche padilla Orderi ng Provid er: SEAN ALTAMIRANO JR EXAM DATE: 2023 EXAM: XR ABDOME N [facility] INFORM ATION: Histor y of urinar y tract stones . IMAGES PROVID ED: KUB AP radiog raphic images of the abdome n. COMPAR KELLI: None. FINDIN GS AND IMPRES KALPESH: No stones or calcif icatio ns are seen in the expect ed locati on of the kidney s, ureter s or urinar y bladde r. Phlebo liths are seen in the pelvis . No other signif icant abnorm ality. Interp reted By: Tara Conner MD Electr onical ly Signed By: Tara Conner MD on 024 4:30 PM [facility] [address] , [place], [address], 05/29/2023 12:27:13 Result Notes None recorded. Problems Name Problem SNOMED Code Status Onset Date Resolution Date Notes Provider Name and Address Organization Details Recorded Time Kidney stone 04999954 Active 2014 From Automated Load;Provi selma: Mark Canales atus: Active Not Available [facility] 6 08:34:43 Chronic prostatiti s 87758326 Active 2015 From Automated Load;Provi selma: Mark Canales atus: Active Not Available [facility] 6 08:34:43 Urgent desire to urinate 92101871 Active 2023 SEAN MORGAN JR, MD [address] [place] [address], [address] , [facility] 12:04:50 Problem Notes None recorded. Procedures Surgical History Date Name Laterality Status Provider Name and Address Organization Details Recorded Time 04/21/20 Post Void Residual; Ultrasound completed Hilda Byers [facility] 04/21/2023 12:01:20 01/11/20 23 Cerumen removal - Instruments, Unilateral completed Kishan Redding [facility] 01/10/2023 15:09:12 11/17/19 23 Cerumen removal - Instruments, Bilateral completed Yen Portillo [facility] 11/16/2022 11:43:05 10/28/19 23 Cerumen removal - Instruments, Bilateral completed Jodi Rodriguez [facility] 10/27/2022 13:10:35 09/02/19 Tympanogram completed BLAKE QUINONES, CCA-A [address] [place] [address], [phone], [facility] 09/01/2022 11:53:52 09/02/19 Audiogram completed BLAKE QUINONES, CCA-A [address] [place] [address], [phone], [facility] 09/01/2022 11:53:50 09/02/19 23 Cerumen removal - Instruments, Unilateral completed Jodi Rodriguez [facility] 09/01/2022 11:26:36 06/23/19 23 Binocular Microscopy completed DARREN HITCHCOCK MD [address] [place] [address], [phone], [facility] 06/23/2022 16:46:14 hernia repair completed Shant Cooney [facility] 06/23/2022 09:04:58 revision of tympanoplasty completed Rupal Chambers [facility] 10/27/2022 12:55:49 Imaging Results None recorded. Procedure Notes None recorded. Medical Equipment None Reported. Allergies Allergen ID Allergen Name Allergen Category Reaction Reaction Severity Criticality Documentation Date Start Date Code Code System Note Provider Name and Address Organization Details Recorded Time 927414 divalproe x sodium medicatio n flushing headache Not available Not available Not available 11/30/2022 38085 6 RxNorm Sherry Rodriguez [facility] 3 08:47:50 Medications Name Sig Start Date Stop Date Status Note LastModified by Organization Details LastModified Time Prescript ion - Change 01/17 completed Not Available Not Available Not Available prednison e 10 mg tablet 6 qd x 3 days, then 5 qd x 3d, 4 qd x 3d, 3 for 3d, 2 qd x 3d, 1 qd x 3d then stop. 04/21 completed Not Available Not Available Not Available ketoconaz ole 2 % shampoo APPLY TO THE AFFECTED AREA(S) ON SCALP AND ARIZMENDI, LATHER, LEAVE IN PLACE FOR 5 MINUTES, AND THEN RINSE OFF WITH WATER BY TOPICAL ROUTE ONCE DAILY NEEDED 2023 active Not Available Not Available Not Avai lable oxybutyni n chloride ER 10 mg tablet,ex tended release 24 hr Daily 10/05 completed Duration : 30 days;Valente quency: daily;Me dication Descript ion: oxybutyn in; Dosage:1 ; Route:or al; refills: 11; Quantity :30 tablet, extended release Not Available Not Available Not Available propranol ol ER 60 mg capsule,2 4 hr,extend ed release Take 1 capsule every day by oral route for 30 days. 2024 active Not Available Not Available Not Avai lable topiramat e 25 mg tablet one at hs x one week, then two at hs 03/17 completed Not Available Not Available Not Available Zyrtec 10 mg tablet 06/20 completed Duration : 10 days;Med ication Descript ion: cetirizi ne; Route:or al; refills: 0; Quantity :30 tablet Not Available Not Available Not Available lithium carbonate ER 450 mg tablet,ex tended release TAKE 1 TABLET BY MOUTH TWICE DAILY 2024 active Not Available Not Available Not Avai lable levothyro xine 25 mcg tablet TAKE 1 TABLET BY MOUTH ONCE DAILY 2023 active Not Available Not Available Not Avai lable meloxicam 7.5 mg tablet 04/21 completed Not Available Not Available Not Available ofloxacin 0.3 % ear drops instill 10 drops into LEFT ear ONCE daily FOR 7 DAYS 06/23 completed Not Available Not Available Not Available Zoloft 50 mg tablet Daily 06/23 completed Duration : 30 days;Valente quency: daily;Me dication Descript ion: sertrali ne; Dosage:1 ; Route:or al; refills: 5; Quantity :30 tablet Not Available Not Available Not Available tamsulosi n 0.4 mg capsule Take 1 capsule twice a day by oral route. 05/25 completed Not Available Not Available Not Available betametha sone valerate 0.1 % topical cream APPLY A THIN LAYER TO THE AFFECTED AREA(S) BY TOPICAL ROUTE ONCE DAILY active Not Available Not Available No t Available lithium carbonate 300 mg capsule TAKE 1 CAPSULE BY MOUTH 3 TIMES DAILY 09/18 completed Not Available Not Available Not Available rizatript an 10 mg disintegr ating tablet one as needed for headache ; may repeat in 2 hours if needed, max 2 in 24 hrs 2023 active Not Available Not Available Not Avai lable cephalexi n 500 mg capsule TAKE TWO CAPSULES BY MOUTH TWICE DAILY -- FINISH ALL MEDICINE -- 06/23 completed Not Available Not Available Not Available erythromy annamarie 5 mg/gram (0.5 %) eye ointment apply TO AREA ON eyelid FOUR TIMES DAILY UNTIL HEALED 06/23 completed Not Available Not Available Not Available divalproe x ER 500 mg tablet,ex tended release 24 hr one at hs x two weeks, then two at hs 11/16 completed Not Available Not Available Not Available ibuprofen 200 mg tablet Take 2 tablets every 6 hours by oral route as needed. 01/10 completed Not Available Not Available Not Available mupirocin 2 % topical ointment apply topicall y with a q-tip TO right nostril FOUR TIMES DAILY NEEDED 10/05 completed Not Available Not Available Not Available verapamil 80 mg tablet Take 1 tablet 3 times a day by oral route. 04/19 completed Not Available Not Available Not Available propranol ol 20 mg tablet Take 1 tablet twice a day by oral route. active Not Available Not Available No t Available oxybutyni n chloride 5 mg tablet Take 1 tablet twice a day by oral route. 05/25 completed Not Available Not Available Not Available ondansetr on 4 mg disintegr ating tablet TAKE 1 TAB NEEDED EVERY 6 HOURS FOR NAUSEA after surgery 10/05 completed Not Available Not Available Not Available Lipitor 10 mg tablet Every night at bedtime 06/23 completed Frequenc y: qhs;Medi cation Descript ion: atorvast atin; Dosage:1 ; Route:or al; refills: 0; Quantity :30 tablet Not Available Not Available Not Available finasteri de 5 mg tablet Daily 06/23 completed Duration : 90 days;Valente quency: daily;Me dication Descript ion: finaster michelle; Dosage:1 ; Route:or al; refills: 3; Quantity :90 tablet Not Available Not Available Not Available naproxen 500 mg tablet TAKE ONE TABLET BY MOUTH TWICE DAILY --TAKE WITH FOOD-- 01/10 completed Not Available Not Available Not Available amoxicill in 875 mg-potass ium clavulana te 125 mg tablet 06/23 completed Not Available Not Available Not Available Tylenol Extra Strength 500 mg tablet TAKE 1-2 TAB EVERY 6 HOURS FOR PAIN after surgery 10/05 completed Not Available Not Available Not Available oxycodone 5 mg tablet take 1 tab ONLY AFTER SURGERY NEEDED every 6-8 hours for pain not controll ed by Tylenol and Ibuprofe n 10/05 completed Not Available Not Available Not Available sumatript an 6 mg/0.5 mL subcutane ous pen injector INJECT SUBCUTAN EOUSLY 0.5ML NEEDED FOR HEADACHE . DO NOT USE WITH MARK MELENDEZ. MANUFACT URER RECOMMEN DS MAXIMUM 12MG WITHIN 24HRS, SEPARATE D DOSES BY 1 HOUR 2024 active Not Available Not Available Not Avai lable Ciprodex 0.3 %-0.1 % ear drops,nusrat pension instill 4 drops into left ear 2x daily for 7 days 01/10 completed Not Available Not Available Not Available alfuzosin ER 10 mg tablet,ex tended release 24 hr Take 1 tablet every day by oral route. 05/25 completed Not Available Not Available Not Available GaviLyte- G 236 gram-22.7 4 gram-6.74 gram-5.86 gram oral solution 03/17 completed Not Available Not Available Not Available Aimovig Autoinjec tor 70 mg/mL subcutane ous auto-inje ctor Inject 1 mL every month by subcutan eous route for 30 days. 03/17 completed Not Available Not Available Not Available Emgality Pen 120 mg/mL subcutane ous pen injector Inject by subcutan eous route for 30 days. 11/16 completed Not Available Not Available Not Available Qulipta 60 mg tablet active Not Available Not Available Not Available Vitals Date Recorded Body height Body mass index (BMI) Body weight Heart rate Oxygen saturation Oxygen saturation in Arterial blood by Pulse oximetry Systolic blood pressure Diastolic blood pressure Provider Name and Address Organization Details Last Updated DateTime 5 182.88 cm 27.3 kg/m2 86858.0 7 g 70 /min 98 % 98 % 116 mm[Hg] 76 mm[Hg] [facility] 5 10:06:09 Date Recorded Body height Body mass index (BMI) Body weight Heart rate Oxygen saturation Oxygen saturation in Arterial blood by Pulse oximetry Systolic blood pressure Diastolic blood pressure Provider Name and Address Organization Details Last Updated DateTime 4 182.88 cm 26.9 kg/m2 77238.2 9 g 71 /min 98 % 98 % 112 mm[Hg] 76 mm[Hg] [facility] 4 15:59:14 Date Recorded Body height Body mass index (BMI) Body weight Heart rate Oxygen saturation Oxygen saturation in Arterial blood by Pulse oximetry Systolic blood pressure Diastolic blood pressure Provider Name and Address Organization Details Last Updated DateTime 5 182.88 cm 27.5 kg/m2 54244.2 5 g 86 /min 99 % 99 % 118 mm[Hg] 72 mm[Hg] [facility] 5 09:06:09 Date Recorded Body height Body mass index (BMI) Body weight Heart rate Oxygen saturation Oxygen saturation in Arterial blood by Pulse oximetry Systolic blood pressure Diastolic blood pressure Provider Name and Address Organization Details Last Updated DateTime 4 182.88 cm 27.1 kg/m2 14977.4 7 g 77 /min 98 % 98 % 118 mm[Hg] 74 mm[Hg] Sherry Rodriguez [facility] 4 11:45:42 Date Recorded Body height Body mass index (BMI) Body weight Heart rate Oxygen saturation Oxygen saturation in Arterial blood by Pulse oximetry Systolic blood pressure Diastolic blood pressure Provider Name and Address Organization Details Last Updated DateTime 4 182.88 cm 27.3 kg/m2 55668.8 7 g 72 /min 97 % 97 % 112 mm[Hg] 70 mm[Hg] Shayla Duke [facility] 4 12:08:38 Social History Question Answer Notes LastModified by [employer] Details LastModified Time Tobacco Smoking Status Never Smoker Matthew Dumas [facility] 10/05/2022 13:56:42 What Is Your Level Of Caffeine Consumption? Moderate [email or web address] Information not available 05/17/2024 Which Illicit Or Recreational Drugs Have You Used? Marijuana Information not available 10/05/2022 What Was The Date Of Your Most Recent Tobacco Screening? 01/18/2024 [email or web address] Information not available 01/18/2024 What Is Your Relationship Status? Single Information not available 10/05/2022 Has Tobacco Cessation Counseling Been Provided? No Information not available 10/05/2022 Have You Recently Traveled Abroad? No Information not available 10/05/2022 Sex: Male Functional Status Question Answer Note LastModified by [employer] Details LastModified Time Do you use any illicit or recreational drugs? Yes Information not available 10/05/2022 Do you or have you ever used any other forms of tobacco or nicotine? No Information not available 10/05/2022 What is your level of alcohol consumption? None Information not available 10/05/2022 Are you currently employed? Yes Information not available 10/05/2022 Mental Status None recorded. Family History Nothing Reported. Medical History Condition Response Diabetes N Anxiety Disorder N Arthritis N Parkinson's Disease N Tuberculosis N Alzheimer's N Cancer N Migraines Y Stroke N Depression N Glaucoma N High Cholesterol N Heart Disease N Hypertension N Neurological Problems N Past Encounters Encounter ID Performer Location Encounter Start Date Encounter Closed Date Diagnosis/Indication Diagnosis SNOMED-CT Code Diagnosis ICD10 Code Diagnosis Note [id number] DARREN HITCHCOCK MD [facility] [address] [place] [address] 06/23/2022 08:39:07 06/23/2022 10:15:27 Otalgia of left ear 4049858191 H92.02 Migraine 86682669 G43.90 9 -TRANSFORM ED MIGRAINE (POSS OTIC)REC OMMENDED MRI OF BRAIN FOR HEADACHES/ MIGRAINES. Rck w/Results Cholesteatoma [id number] H71.92 LEFT INFERIOR CANAL W/ LIMITED BONY EROSION/2 06/24- INFERIOR CANAL. RX CIPRODEX FOR DRAINAGE, RCK 1MO FOR REPEAT EXAMFUTURE AUDIO MRI BRAIN FOR WORSENING HEADACHES WAKING HIM FROM SLEEPCONSI SELMA NEURO CONSULT FOR MIGRAINE / PSB TRANSFORME D MIGRAINE Acute otit is externa of left ear [id number] 159768 H60.502 RX CIPRODEX BID [id number] DARRNE HITCHCOCK MD [facility] [address] [place] [address] 09/01/2022 10:42:51 09/01/2022 13:14:43 Cholesteatoma [id number] H71.92 LEFT CANAL W/ BONY EROSION UP TO THE ANNULUS/2 06/24- INFERIOR CANAL. RX CIPRODEX FOR DRAINAGE, RCK 1MO FOR REPEAT EXAMFUTURE AUDIO *MRI BRAIN FOR WORSENING HEADACHES WAKING HIM FROM SLEEP- RADIOLOGY REVIEW PENDING. NEURO CONSULT FOR SEVERE HEADACHES 09/01/22- LEFT CANAL CHOLESTEAT MAURI DIVING INFERIORLY . LEFT CANALPLAST Y/LEFT FASCIA GRAFT/LEFT EAR CANAL BIOPSY. COUNSELED REGARDING PERSISTENT PAIN POSTOP - I DO NOT THINK THE EAR IS CONTRIBUTI NG SIGNIFICAN TLY TO HIS HEADACHES AND REPAIR OF THE CHOLESTEAT MAURI IS TO PREVENT FURTHER BONY CANAL EROSION TOWARD HIS MIDDLE EAR. Otalgia of left ear 1010 053559 H92.02 Acute otit is externa of left ear 9583081152 529838 H60.502 Migraine [id number] G43.90 9 -VS CLUSTER HEADACHE -TRIGGERED BY ALCOHOL*MR I BRAIN COMPLETED NEUROLOG Y CONSULT FOR FREQUENT SEVERE HEADACHES. NO IMPROVEMEN T WITH TRIPTANS IN THE PAST AND [facility] SAMPLE PROVIDED TODAY. [id number] WALLY LIAOANGLE VIRAMONTES ER, AUD, CCA-A [facility] [address] [place] [address] 09/01/2022 11:47:06 09/02/2022 04:03:27 Bilateral tinnitus 8782654494 102 H93.13 Abnormal a uditory perception 64307945 H93.293 [id number] DARREN HITCHCOCK MD SURGERY SCHEDULE [address] [place] [address] 09/21/2022 11:12:47 09/21/2022 11:15:55 [id number] ZELALEM ROWLAND MD NEUROLOGY [address] [place] [address] 10/05/2022 13:16:08 10/05/2022 14:48:35 Migraine 61996692 G43.909 [id number] DARREN HITCHCOCK MD [facility] [address] [place] [address] 10/27/2022 12:45:56 10/28/2022 09:59:04 Cholesteatoma [id number] H71.92 LEFT EROSIVE CANAL CHOLESTEAT MAURI W/ BONY EROSION TO THE ANNULUS *09/21/22- LEFT CANALPLAST Y/LEFT FASCIA GRAFT/LEFT EAR CANAL BIOPSY. COUNSELED REGARDING PERSISTENT PAIN POSTOP - I DO NOT THINK THE EAR IS CONTRIBUTI NG SIGNIFICAN TLY TO HIS HEADACHES AND REPAIR OF THE CHOLESTEAT MAURI IS TO PREVENT FURTHER BONY CANAL EROSION TOWARD HIS MIDDLE EAR. *MRI BRAIN FOR WORSENING HEADACHES WAKING HIM FROM SLEEP- NO MASSESNE URO CONSULT FOR SEVERE HEADACHES 10/27/22- CLEANED UNDER MICROSCOPE . NO INFECTION W/MODERATE INFLAMMATI ON. *DRY EAR PRECAUTION S, CIPRODEX X14 DAYS. RCK 2-4 WEEKS. Migraine [id number] G43.[address] [facility]* * -VS CLUSTER HEADACHE -TRIGGERED BY ALCOHOL*MR I BRAIN COMPLETED NEUROLOG Y CONSULT FOR FREQUENT SEVERE HEADACHES. NO IMPROVEMEN T WITH TRIPTANS IN THE PAST AND [facility] SAMPLE PROVIDED TODAY. Neuralgia 66364498 M79.2 OTIC/TRIGE JAMMIE/ TRANSFORME D MIGRAINE - DR. ROWLAND [facility] [id number] KODAK HITCHCOCK MD [facility] [address] [place] [address] 11/16/2022 10:46:44 11/16/2022 16:25:54 Cholesteatoma [id number] H71.92 LEFT EROSIVE CANAL CHOLESTEAT MAURI W/ BONY EROSION TO THE ANNULUS *09/21/22- LEFT CANALPLAST Y/LEFT FASCIA GRAFT/LEFT EAR CANAL BIOPSY. COUNSELED REGARDING PERSISTENT PAIN POSTOP - I DO NOT THINK THE EAR IS CONTRIBUTI NG SIGNIFICAN TLY TO HIS HEADACHES AND REPAIR OF THE CHOLESTEAT MAURI IS TO PREVENT FURTHER BONY CANAL EROSION TOWARD HIS MIDDLE EAR. *MRI BRAIN FOR WORSENING HEADACHES WAKING HIM FROM SLEEP- NO MASSESNE URO CONSULT FOR SEVERE HEADACHES 10/27/22- CLEANED UNDER MICROSCOPE . NO INFECTION W/MODERATE INFLAMMATI ON. *DRY EAR PRECAUTION S, CIPRODEX X14 DAYS. RCK 2-4 WEEKS. Migraine [id number] G43.[address] [facility]* * -VS CLUSTER HEADACHE -TRIGGERED BY ALCOHOL*MR I BRAIN COMPLETED NEUROLOG Y CONSULT FOR FREQUENT SEVERE HEADACHES. NO IMPROVEMEN T WITH TRIPTANS IN THE PAST AND [facility] SAMPLE PROVIDED TODAY. - Currently on Aimovig monthly injections Neuralgia 04532966 M79.2 OTIC/TRIGE JAMMIE/ TRANSFORME D MIGRAINE - DR. R[facility] Dysfunctio n of right eustachian tube [id number] 756549 H69.91 Normal exam today and normal tympanomet ry today. Discussed this is sometimes atypical migraine [id number] ZELALEM ROWLAND MD NEUROLOGY [address] [place] [address] 11/30/2022 08:36:05 12/01/2022 04:18:27 Migraine 41997057 G43.909 [id number] YURY RODRIGEZ MD [facility] [address] [place] [address] 01/10/2023 14:20:31 01/10/2023 16:07:20 Dysfunction of right eustachian tube 8219340913 522378 H69.91 Normal exam today and normal tympanomet ry today. Discussed this is sometimes atypical migraine Cholesteatoma [id number] H71.92 LEFT EROSIVE CANAL CHOLESTEAT MAURI W/ BONY EROSION TO THE ANNULUS *09/21/22- LEFT CANALPLAST Y/LEFT FASCIA GRAFT/LEFT EAR CANAL BIOPSY. COUNSELED REGARDING PERSISTENT PAIN POSTOP - I DO NOT THINK THE EAR IS CONTRIBUTI NG SIGNIFICAN TLY TO HIS HEADACHES AND REPAIR OF THE CHOLESTEAT MAURI IS TO PREVENT FURTHER BONY CANAL EROSION TOWARD HIS MIDDLE EAR. *MRI BRAIN FOR WORSENING HEADACHES WAKING HIM FROM SLEEP- NO MASSESNE URO CONSULT FOR SEVERE HEADACHES 10/27/22- CLEANED UNDER MICROSCOPE . NO INFECTION W/MODERATE INFLAMMATI ON. *DRY EAR PRECAUTION S, CIPRODEX X14 DAYS. RCK 2-4 WEEKS. Migraine [id number] G43.[address] [facility]* * -VS CLUSTER HEADACHE -TRIGGERED BY ALCOHOL*MR Hussain BRAIN COMPLETED - 08/17/22 -small 0.5 cm pineal gland cystic lesion ? Significan ce NEUROLOG Y CONSULT FOR FREQUENT SEVERE HEADACHES. NO IMPROVEMEN T WITH [facility]. - Currently on Aimovig monthly injections Neuralgia 50716400 M79.2 OTIC/TRIGE JAMMIE/ TRANSFORME D MIGRAINE - DR. [facility] Impacted c erumen in right ear [id number] 361647 H61.21 01/10/23 - Cerumen removal - Instrument s, Unilateral Hypertroph y of nasal turbinates 04701645 J34.3 [id number] KODAK HITCHCOCK MD [facility] [address] [place] [address] 01/13/2023 08:11:06 01/13/2023 09:44:[id number] [facility]* * -VS CLUSTER HEADACHE -TRIGGERED BY ALCOHOL*MR I BRAIN COMPLETED - 08/17/22 -small 0.5 cm pineal gland cystic lesion ? Significan ce NEUROLOG Y CONSULT FOR FREQUENT SEVERE HEADACHES. NO IMPROVEMEN T WITH TRIPTANS IN THE PAST AND NURTE SAMPLE PROVIDED TODAY. - Currently on Aimovig monthly injections Negritoeatoma [id number] H71.92 LEFT EROSIVE CANAL CHOLESTEAT MAURI W/ BONY EROSION TO THE ANNULUS *09/21/22- LEFT CANALPLAST Y/LEFT FASCIA GRAFT/LEFT EAR CANAL BIOPSY. COUNSELED REGARDING PERSISTENT PAIN POSTOP - I DO NOT THINK THE EAR IS CONTRIBUTI NG SIGNIFICAN TLY TO HIS HEADACHES AND REPAIR OF THE CHOLESTEAT MAURI IS TO PREVENT FURTHER BONY CANAL EROSION TOWARD HIS MIDDLE EAR. *MRI BRAIN FOR WORSENING HEADACHES WAKING HIM FROM SLEEP- NO MASSESNE URO CONSULT FOR SEVERE HEADACHES 10/27/22- CLEANED UNDER MICROSCOPE . NO INFECTION W/MODERATE INFLAMMATI ON. *DRY EAR PRECAUTION S, CIPRODEX X14 DAYS. RCK 2-4 WEEKS. Dysfunctio n of right eustachian tube [id number] 358981 H69.91 Normal exam today and normal tympanomet ry today. Discussed this is sometimes atypical migraine Neuralgia 86733666 M79.2 OTIC/TRIGE JAMMIE/ TRANSFORME D MIGRAINE - DR. ROWLAND [facility] Impacted c erumen in right ear [id number] 691924 H61.21 01/10/23 - Cerumen removal - Instrument s, Unilateral Hypertroph y of nasal turbinates 38228576 J34.3 Tinnitus of left ear 391 9751676 106 H93.12 Eczema of external auditory canal 08334595 H60.549 Atypical facial pain 713 32899 G50.1 I suspect I suspect left otic migraine is etiology for his pain. His examinatio n is normal today and I have demonstrat ed this on [facility]. [id number] ZELALEM ROWLAND MD NEUROLOGY [address] [place] [address] 03/17/2023 10:53:48 03/18/2023 05:15:35 Chronic cluster headache 872940014 G44.029 [id number] ERIK ELIZABETH MD [facility] [address] [facility] [address] [place] [address] 03/17/2023 13:26:44 03/17/2023 13:45:45 Chronic cluster headache 638086985 G44.029 [id number] SEAN MORGAN JR, MD [facility] [address] [place] [address] 04/21/2023 10:52:22 04/21/2023 12:11:34 Benign prostatic hyperplasia with outflow obstruction 020015007 N40.1 [id number] ZELALEM ROWLAND MD NEUROLOGY SB CL[address]ED [address] [place] [address] 04/21/2023 12:49:30 04/22/2023 04:30:13 Chronic cluster headache [id number] G44.029 [id number] ALICIA LANDA MD [facility] [address] [place] [address] 04/29/2023 12:53:19 04/29/2023 12:54:28 Acute urinary tract infection [id number] N39.0 [id number] CHEPE JASSO PA-C [facility] [address] [place] [address] 05/18/2023 09:35:28 05/18/2023 10:36:29 Seborrheic dermatitis 15053096 L21.9 SCALP, BEARDMILD FLARINGDIS CUSSED DX AND TX OPTIONS WITH PTSTART KETOCONAZO LE 2% SHAMPOO QD PRNF/U IF NOT IMPROVING Milia 645463203 L72.0 BENIGN APPEARANCE ; PT REASSURED Hemangioma 659119763 D18 .00 BENIGN APPEARANCE ; PT REASSURED Solar lentiginosis 61514 2007 L81.4 BENIGN APPEARANCE ; PT REASSUREDR ECOMMENDED SUN PROTECTIVE CLOTHING/H ATS AND OTC SPF 30+ EQUATE SPORT OR BLUE LIZARD SUNSCREEN DAILY Multiple b enign melanocytic nevi 551227472 D22.9 BENIGN APPEARANCE ; PT REASSURED; MONITOR FOR CHANGESF/U 1 YR ANNUAL FSE OR SOONER IF ANY NEW OR CHANGING LESIONS [id number] SEAN MORGAN JR, MD HECTOR [facility] [address] [place] [address] 05/25/2023 11:08:38 05/25/2023 15:49:59 Urgent desire to urinate 76822614 R39.15 [id number] ZELALEM ROWLAND MD NEUROLOGY [address] [place] [address] 06/20/2023 15:47:12 06/20/2023 16:30:50 Chronic cluster headache [id number] G44.029 [id number] ZELALEM ROWLAND MD NEUROLOGY SB CL[address]ED [address] [place] [address] 1 09/19/2023 11:12:35 09/20/2023 04:24:01 Chronic cluster headache 088635376 G44.029 Migraine 60534669 G43.90 9 [id number] ZELALEM ROWLAND MD NEUROLOGY SB CL[address] [place] [address] 1 01/18/2024 11:11:23 01/19/2024 04:36:43 Migraine 51175540 G43.909 Chronic cl uster headache 739661216 G44.029 [id number] ZELALEM ROWLAND MD NEUROLOGY CLOSED [address] [place] [address] 1 05/17/2024 09:27:20 05/21/2024 16:32:37 Renewal of prescription [id number] Z76.0 Chronic cl uster headache 031114745 G44.029 [id number] ZELALEM ROWLAND MD NEUROLOGY [address] [place] [address] 1 09/14/2024 08:54:00 09/14/2024 10:30:39 Chronic cluster headache [id number] G44.021 Health Concerns Section Related Observation LastModified by Organization Detai ls LastModified Time None Recorded Concern Status LastModified by Organization Details LastModified Time None Recorded Advance Directives Directive None Recorded Payers Insurance Date Sequence Insurance Name Policy Number Policy Hernandez Covered Member ID Hernandez Member ID Guarantor Name 11/16/2022 1 [id number] Juan Headley [id number] Juan Headley 09/17/2024 1 [id number] Juan Headley [id number] Juan Headley 12/01/2022 1 [id number] [id number] Juan Headley [id number] Juan Headley Notes Date Note Type Note Provider Name and Address Organization Details Recorded Time 06/20/2023 text/html He was seen in April. He has been taking lithium 300 mg tid. In general, this has been helpful, though headaches are not gone. No major side effects except initially he had weird anxiety when trying to go to sleep and would have to get up and walk around. Headaches are not gone, variable, not all cluster-likeSlight headache Tuesday.Bad one Tuesday and took triptan.Tuesday there was cluster headache around the left eye and bad headache.Tuesday OK.Tuesday terr he woke up with dull headache, took lithium and it seemed to help, then had some coffee and it came back, dull frontal. lithium level 0.5 twice.TSH has been slightly elevated but with normal free T4.creatinine, AST nl. ZELALEM ROWLAND MD [address] [place] [address], [phone], [facility] 06/26/2023 14:18:18 09/19/2023 text/html He was seen in June. Doing well, better - not perfect but much better than six mos ago or so. Cluster headaches have been better.He has not woken up with one, probably since starting lithium. He was having early-morning headaches 5-6 days a week.These days they occur maybe once a week, will settle down by noon. Did yard work last weekend and had headache with that.Some of these have been more migrainous. Sumatriptan, rizatriptan - these help but he tends to get headache when it wears off so he avoids. sleeps better. not o/w ill. shoulder pain. lithium level, creatinine have been normal.TSH mildly elevated but with normal T4 ZELALEM ROWLAND MD [address] [place] [address], [phone], [facility] 09/19/2023 13:13:09 01/18/2024 text/html He was seen abou t four months ago. He was doing awesome, sleeping well, rare headaches, until he had the flu or COVID in late October, sick with this for a week, in bed, tired, had headache, and he developed a cluster headache in the midst of this, took Maxalt. Then he had headaches in the morning, present around 0500 upon awakening, for a couple of weeks, around the eye and with clogged sinus feeling on left, goes away thru the morning, will put up with them. Fine the rest of the day. Had ?sinus headache yesterday - right side headache, not the eye, not the usual left side. Could function with this.Otherwise doing pretty well this week. feels fine this morning. He is not getting the atyiqx-ne-dhd-nite headaches. Feels lithium has kicked them Rizatriptan helps with some of the headaches, does not take this regularly. ZELALEM ROWLAND MD [address] [place], [address], [facility] 01/18/2024 19:11:53 05/17/2024 text/html He was seen in December Just until the past few days, he was doing pretty well. He would go 7-10 days with no headache then have one.Usually this is responsive to SC Imitrex; previously he did not like the idea of shots but this works well and quickly. Past four days (nights) he has had headache - waking up at 0230 or so with periorbital headache, variable severity. Used Imitrex one of those nites. Others were less severe. Dull headache can linger. This is the first four-day stretch he has had headache since starting lithium, he thinks, (though I have documented frequent headaches in November after COVID). Overall he still thinks he is definitely doing better with lithium ZELALEM ROWLAND MD [address] [place], [address], [facility] 05/17/2024 12:44:57 09/14/2024 text/html He was seen a fe w mos ago and he was doing fairly well then, but then headaches increased and he had lots of problems with anxiety, not sleeping well because of this. He reduced lithium to one/day at the beginning of the month, and there have been two headaches since. He has had issues with anxiety, not sleeping well because of this. Tried Lexapro but he had headaches with this, one of which lasted four days.He feels he may have had serotonin syndrome as well because he used Imitrex at the time and felt more anxious, etc. He was recently given propranolol 20 mg bid for anxiety.He has not taken this before.He has not had major SE from this. ZELALEM ROWLAND MD [address] [place], [address], [facility] 09/16/2024 14:23:39
--- OUTSIDE RECORDS SUMMARY | 2024-10-18 10:31 | XMS_ITS | Continuity of Care Document ---
Author Organization [facility], NEUROLOGY [address] [place] [address] Care Team Providers Care National Investigative Producer Name Role Phone CINDY HOSKINS Primary Care Provider ZELALEM ROWLAND Neurologist [phone] Assessment Encounter Date Assessment Date Assessment LastModified by Organization Details LastModified Time 09/14/2024 09/14/2024 Chronic cluster headache. Discussed options. He has been doing better the past couple of weeks - perhaps because of propranolol. I am not sure how much lithium is really helping. Will try stopping this and continuing propranolol. Dose could be increased to 60 mg LA or more, if needed f/u in just six weeks [email or web address] Not available 09/16/2024 14:23:26 Plan of Treatment Reminders Order Date Submit Date Provider Last Modified By Organization Details Last Modified Time Details Appointments NEUROLOG Y RECHECK 2024 10:30A M ZELALEM ROWLAND MD Not available Not available Not available Lab None recorded . Referral None recorded . Procedures None recorded . Surgeries None recorded . Imaging None recorded . Medication Orders None recorded . Patient TargetsNo targets recorded. Patient InstructionsNo instructions recorded. Reason for Referral None Reported. Problems Name Problem SNOMED Code Status Onset Date Resolution Date Notes Provider Name and Address Organization Details Recorded Time Kidney stone 61518096 Active 2014 From Automated Load;Provi selma: Mark Canales atus: Active Not Available [facility] 6 08:34:43 Chronic prostatiti s 53150503 Active 2015 From Automated Load;Provi selma: Carmelo Canales; atus: Active Not Available [facility] 6 08:34:43 Urgent desire to urinate 24178607 Active 2023 SEAN MORGAN JR, MD [address] [place] [address], [phone] , [facility] 12:04:50 Problem Notes None recorded. Procedures Surgical History Date Name Laterality Status Provider Name and Address Organization Details Recorded Time 04/21/20 Post Void Residual; Ultrasound completed Hilda Byers [facility] 04/21/2023 12:01:20 01/11/20 23 Cerumen removal - Instruments, Unilateral completed Kishan Redding [facility] 01/10/2023 15:09:12 11/17/19 23 Cerumen removal - Instruments, Bilateral completed Yen Portillo [facility] 11/16/2022 11:43:05 10/28/19 23 Cerumen removal - Instruments, Bilateral completed Jodi Rodriguez [facility] 10/27/2022 13:10:35 09/02/19 Tympanogram completed BLAKE QUINONES, CCA-A [address] [place] [address], [phone], [facility] 09/01/2022 11:53:52 09/02/19 Audiogram completed BLAKE QUINONES, CCA-A [address] [place] [address], [phone], [facility] 09/01/2022 11:53:50 09/02/19 23 Cerumen removal - Instruments, Unilateral completed Jodi Rodriguez [facility] 09/01/2022 11:26:36 06/23/19 23 Binocular Microscopy completed DARREN HITCHCOCK MD [address] [place] [address], [phone], [facility] 06/23/2022 16:46:14 hernia repair completed Shant Cooney [facility] 06/23/2022 09:04:58 revision of tympanoplasty completed Rupal Chambers [facility] 10/27/2022 12:55:49 Imaging Results None recorded. Procedure Notes None recorded. Medical Equipment None Reported. Allergies Allergen ID Allergen Name Allergen Category Reaction Reaction Severity Criticality Documentation Date Start Date Code Code System Note Provider Name and Address Organization Details Recorded Time 735603 divalproe x sodium medicatio n flushing headache Not available Not available Not available 11/30/2022 22527 6 RxNorm Sherry Rodriguez [facility] 3 08:47:50 Medications Name Sig Start [...] Updated DateTime 5 182.88 cm 27.5 kg/m2 09025.2 5 g 86 /min 99 % 99 % 118 mm[Hg] 72 mm[Hg] Sherry Rodriguez [facility] 5 09:06:09 Social History Question Answer Notes LastModified by Organizat ion Details LastModified Time Tobacco Smoking Status [facility]/05/2022 13:56:42 What Is Your Level Of Caffeine Consumption? Moderate [email or web address] Information not available 05/17/2024 Which Illicit Or [...] Functional Status Question Answer Note LastModified by Organizat ion Details LastModified Time Do you use any [...] Arthritis N Parkinson's Disease N Tuberculosis N Cancer N Alzheimer's N Migraines Y Stroke N Glaucoma N Depression N High Cholesterol N Heart Disease N Hypertension N Neurological Problems N Past Encounters Encounter ID Performer Location Encounter Start Date Encounter Closed Date Diagnosis/Indication Diagnosis SNOMED-CT Code Diagnosis ICD10 Code Diagnosis Note [id number] ZELALEM ROWLAND MD NEUROLOGY [address] [place] [address] 09/14/2024 08:54:00 09/14/2024 10:30:39 Chronic cluster headache 120385013 G44.021 Health Concerns Section Related Observation LastModified by Organization Detai ls LastModified Time None Recorded Concern Status LastModified by Organization Details LastModified Time None Recorded Payers Encounter Date Sequence Insurance Name Policy Number Policy Hernandez Covered Member ID Hernandez Member ID Guarantor Name 09/14/2024 1 [facility] [id number] Juan Headley [id number] Juan Headley Notes Date Note Type Note Provider Name and Address Organization Details Recorded Time 09/14/2024 text/html He was seen a fe [...] major SE from this. ZELALEM ROWLAND MD [address] [place] [address], [phone], [facility] 09/16/2024 14:23:39
--- NOTE | 2024-10-18 11:30 | NM_ITS ---
APPROVED REPORT Exam: Nuclear Stress Test Indication: cp..fatigue Patient Location: Outpatient Stress Tech: [place] Tech:Birgit Carey FREDDYNatasha RT(R)(N) Ht: 6 ft 1 in Wt: 198 lbs HR: 68 bpm BP: 127/82 mmHg BSA: 2.14 m2 TID: 0.94 BMI: 26.1 History: chest pain, fatigue Procedure: Patient exercised on Veto protocol 8:15 minutes and sec, resting heart rate 68 bpm, resting blood pressure 127/82 mmHg, with exercise maximum heart rate achived was 157 bpm which is 89 % of the maximum predicted heart rate and blood pressure was 160/78 mmHg. Test was stopped due to fatigue. Patient denied any complaint of chest pain. Patient has average exercise capacity, achieved 10.3 METs of workload on treadmill, the blood pressure response to exercise was normal. Cardiac Stress and Resting SPECT Images: Cardiac Stress and Resting SPECT images were obtained using technetium 99m Myoview 32.8 mCi stress and 10.63 mCi at rest. Resting and stress imaging in supine and prone positions demonstrate no evidence of fixed or reversible perfusion defects. Gated imaging demonstrates normal global and regional LV systolic function. LVEF is calculated at 58%. Conclusion: No evidence of fixed or reversible perfusion defects. Gated imaging demonstrates normal global and regional LV systolic function. LVEF is calculated at 58%. Electronically signed by : Niharika Khanna MD 10/19/2024 15:33:52
[2024-10-18] MEDS: SODIUM CHLORIDE 0.9% 10ML SYR (RAD ONLY) 10 ML IV ×2 (13:19)
[2024-10-18] MEDS: ISOTOPE MYOVIEW (PER STUDY) 1 DOSE IV (13:19)
== END 2024-10-18 23:59 | disposition home or self-care (01) ==
LOC: RT 10:20
PROVIDERS: PCP Internal Medicine; Visit Provider Internal Medicine
DX: I34.0 Nonrheumatic mitral (valve) insufficiency (principal); I49.3 Ventricular premature depolarization; R94.31 Abnormal electrocardiogram [ECG] [EKG]; Z82.49 Family history of ischemic heart disease and other diseases of the circulatory system
CPT/HCPCS: 78452; 93017; 93018; 93306; A9502